=== PATIENT | male | born 1955 | race Caucasian/White ===

== ENCOUNTER → 2020-06-25 10:23 | Outpatient (BNVA) | payer OTHER, SELFPAY | PROVIDERS: Visit Provider Family Medicine Adult Medicine | DX: G47.419 Narcolepsy without cataplexy (principal); I42.8 Other cardiomyopathies; R73.09 Other abnormal glucose; E66.9 Obesity, unspecified; G47.30 Sleep apnea, unspecified; E78.5 Hyperlipidemia, unspecified; R21 Rash and other nonspecific skin eruption; H10.10 Acute atopic conjunctivitis, unspecified eye; J30.9 Allergic rhinitis, unspecified; E03.9 Hypothyroidism, unspecified; I10 Essential (primary) hypertension; R11.0 Nausea; Z68.39 Body mass index [BMI] 39.0-39.9, adult | CPT/HCPCS: 83036 ==

== ENCOUNTER → 2020-09-30 09:27 | Outpatient (BNVA) | payer OTHER, SELFPAY | PROVIDERS: PCP Family Medicine Adult Medicine; Visit Provider Family Medicine Adult Medicine | DX: I10 Essential (primary) hypertension (principal); E78.5 Hyperlipidemia, unspecified; R73.09 Other abnormal glucose | CPT/HCPCS: 85025 ==

== ENCOUNTER → 2020-09-30 09:27 | Outpatient (BNVA) | payer OTHER, SELFPAY | PROVIDERS: PCP Family Medicine Adult Medicine; Visit Provider Family Medicine Adult Medicine | DX: I10 Essential (primary) hypertension (principal); Z00.00 Encounter for general adult medical examination without abnormal findings; I50.9 Heart failure, unspecified; E78.5 Hyperlipidemia, unspecified; R73.09 Other abnormal glucose; E66.9 Obesity, unspecified | CPT/HCPCS: 80053; 80061; 83036; 84443; 85025; G0103 ==

== ENCOUNTER → 2020-10-25 13:33 | Outpatient (BNVA) | payer OTHER, SELFPAY | PROVIDERS: PCP Family Medicine Adult Medicine; Visit Provider Nurse Practitioner Family | DX: Z20.822 Contact with and (suspected) exposure to COVID-19 (principal); J06.9 Acute upper respiratory infection, unspecified | CPT/HCPCS: 87635 ==

== ENCOUNTER 2020-10-29 10:41 | Outpatient (CLI) | payer OTHER, SELFPAY ==
[2020-10-29 10:50] VITALS: BP 96/63; PULSE 70; RESP 20; TEMP 36.7; O2SAT 95
[2020-10-29 11:44] VITALS: BP 104/58; PULSE 63; RESP 18; O2SAT 93
[2020-10-29 12:44] VITALS: BP 112/76; PULSE 53; RESP 18; TEMP 36.7; O2SAT 98
== END 2020-10-29 10:42 | disposition home or self-care (01) ==
PROVIDERS: PCP Family Medicine Adult Medicine; Visit Provider Registered Nurse Neonatal Intensive Care
DX: U07.1 COVID-19 (principal)
CPT/HCPCS: 96365

== ENCOUNTER 2020-11-21 08:40 | Outpatient (CLI) | payer OTHER, SELFPAY ==
--- NOTE | 2020-11-21 08:45 | USCV_ITS ---
Tommy Handley Age: 65 Gender: M : 1955 Exam Date: 11/21/2020 09:13 Ordering Phys: Mikayla Frederick MD ([email or web address]) Technologist: Adryan Miramontes Exam Location: [facility] [place] Indication: arrhythmia BP: 120 / 73 HR: 54 Rhythm: Other Technical Quality: Adequate MEASUREMENTS (Male / Female) Normal Values 2D ECHO LV Diastolic Diameter PLAX 4.7 cm 4.2 - 5.9 / 3.9 - 5.3 cm LV Systolic Diameter PLAX 2.7 cm IVS Diastolic Thickness 1.1 cm 0.6 - 1.0 / 0.6 - 0.9 cm IVS Systolic Thickness 1.6 cm LVPW Diastolic Thickness 1.1 cm 0.6 - 1.0 / 0.6 - 0.9 cm LVPW Systolic Thickness 1.6 cm LVOT Diameter 2.1 cm LV Ejection Fraction 2D Teich 73.6 % LV Ejection Fraction MOD 2C 65.6 % LV Ejection Fraction 2C AL 66.4 % LA Diameter 3.9 cm LA Width 4.1 cm LA Height 5.2 cm RA Width 4.8 cm RA Height 4.7 cm DOPPLER AV Peak Velocity 153.0 cm/s LVOT Peak Velocity 82.0 cm/s AV Area Cont Eq vti 1.7 cm squared AV Area Cont Eq pk 1.8 cm squared MV Area PHT 5.0 cm squared Mitral E to A Ratio 0.7 MV E' Velocity 34.0 cm/s Mitral E to MV E' Ratio 7.5 Mitral E to LV E' Lateral Ratio 5.1 Mitral E to LV E' Septal Ratio 14.6 TR Peak Velocity 147.7 cm/s TR Peak Gradient 8.7 mmHg FINDINGS Left Ventricle Normal left ventricular cavity size. Normal left ventricular systolic function. No regional wall motion abnormalities. Left ventricular ejection fraction is estimated at 60 %. Grade I/IV diastolic dysfunction (abnormal relaxation filling pattern), normal to mildly elevated filling pressures. Right Ventricle The right ventricle is normal in size and function. RVSP could not be calculated due to incomplete tricuspid regurgitation velocity profile. Right Atrium The right atrium is normal in size. Left Atrium The left atrium is normal in size. Mitral Valve Mildly thickened mitral valve. No mitral valve stenosis. No mitral valve regurgitation. Aortic Valve Mild aortic valve calcification. No aortic valve stenosis. Trace aortic valve regurgitation. Tricuspid Valve Structurally normal tricuspid valve without significant stenosis or regurgitation. Pulmonic Valve Structurally normal pulmonic valve without significant stenosis. There is no pulmonic regurgitation. Pericardium Normal pericardium without effusion. Aorta Normal ascending aorta dimension. CONCLUSIONS 1-Normal left ventricular cavity size. Normal left ventricular systolic function. No regional wall motion abnormalities. Left ventricular ejection fraction is estimated at 60 %. Grade I/IV diastolic dysfunction (abnormal relaxation filling pattern), normal to mildly elevated filling pressures. 2-There is no pericardial effusion. 3-No significant valve abnormalities. 4-The right ventricle is normal in size and function. RVSP could not be calculated due to incomplete tricuspid regurgitation velocity profile. 5-Right atrial pressure is around 5 mm of mercury. 6-There are no prior echocardiogram studies to compare. Mikayla Frederick MD (Electronically Signed) Final Date: 28 November 2020 15:26 S
== END 2020-11-21 08:41 | disposition home or self-care (01) ==
PROVIDERS: PCP Family Medicine Adult Medicine; Visit Provider Internal Medicine Cardiovascular Disease
DX: R06.02 Shortness of breath (principal); R07.9 Chest pain, unspecified; I42.8 Other cardiomyopathies; I50.9 Heart failure, unspecified
CPT/HCPCS: 93306

== ENCOUNTER → 2021-07-31 11:16 | Outpatient (BNVA) | payer MEDICARE, OTHER, SELFPAY | PROVIDERS: PCP Family Medicine Adult Medicine; Visit Provider Family Medicine Adult Medicine | DX: I50.9 Heart failure, unspecified (principal); I42.8 Other cardiomyopathies; E03.9 Hypothyroidism, unspecified; I10 Essential (primary) hypertension; E78.5 Hyperlipidemia, unspecified; E66.9 Obesity, unspecified; Z79.899 Other long term (current) drug therapy | CPT/HCPCS: 80053; 80061; 83036; 84443; 85025; G0103 ==

== ENCOUNTER → 2022-04-08 09:46 | Outpatient (BNVA) | payer MEDICARE, SELFPAY | PROVIDERS: PCP Family Medicine Adult Medicine; Visit Provider Internal Medicine Cardiovascular Disease | DX: I42.8 Other cardiomyopathies (principal); G47.33 Obstructive sleep apnea (adult) (pediatric); E03.9 Hypothyroidism, unspecified; E78.5 Hyperlipidemia, unspecified; E66.9 Obesity, unspecified; Z68.38 Body mass index [BMI] 38.0-38.9, adult; F17.200 Nicotine dependence, unspecified, uncomplicated; I11.0 Hypertensive heart disease with heart failure; I50.9 Heart failure, unspecified | CPT/HCPCS: 99214 ==

== ENCOUNTER → 2022-05-06 15:19 | Outpatient (BNVA) | payer MEDICARE, SELFPAY | PROVIDERS: PCP Family Medicine Adult Medicine; Visit Provider Family Medicine Adult Medicine | DX: I10 Essential (primary) hypertension (principal); I50.9 Heart failure, unspecified; E03.9 Hypothyroidism, unspecified; G47.33 Obstructive sleep apnea (adult) (pediatric); E66.9 Obesity, unspecified | CPT/HCPCS: 80053; 84443; 85025 ==

== ENCOUNTER → 2022-05-08 13:42 | Outpatient (BNVA) | payer MEDICARE, SELFPAY | PROVIDERS: PCP Family Medicine Adult Medicine; Visit Provider Family Medicine Adult Medicine | DX: I50.9 Heart failure, unspecified (principal); E03.9 Hypothyroidism, unspecified | CPT/HCPCS: 80053; 84443 ==

== ENCOUNTER → 2022-10-01 13:11 | Outpatient (BNVA) | payer MEDICARE, SELFPAY | PROVIDERS: PCP Family Medicine Adult Medicine; Visit Provider Nurse Practitioner Family | DX: I11.0 Hypertensive heart disease with heart failure (principal); I50.9 Heart failure, unspecified; F17.210 Nicotine dependence, cigarettes, uncomplicated | CPT/HCPCS: 99214 ==

== ENCOUNTER → 2022-10-13 08:45 | Outpatient (BNVA) | payer MEDICARE, SELFPAY | PROVIDERS: PCP Family Medicine Adult Medicine; Visit Provider Family Medicine Adult Medicine | DX: E78.5 Hyperlipidemia, unspecified (principal); I10 Essential (primary) hypertension; E03.9 Hypothyroidism, unspecified; N40.0 Benign prostatic hyperplasia without lower urinary tract symptoms | CPT/HCPCS: 80053; 80061; 84153 ==

== ENCOUNTER → 2023-01-22 08:52 | Outpatient (BNVA) | payer MEDICARE, SELFPAY | PROVIDERS: PCP Family Medicine Adult Medicine; Visit Provider Family Medicine Adult Medicine | DX: E03.9 Hypothyroidism, unspecified (principal); R73.09 Other abnormal glucose; E78.5 Hyperlipidemia, unspecified; R73.03 Prediabetes | CPT/HCPCS: 80061; 83036; 84443 ==

== ENCOUNTER 2023-03-04 20:27 | Emergency (ER) | payer MEDICARE, SELFPAY ==
[2023-03-04 20:38] VITALS: BP 139/77; PULSE 87; RESP 16; TEMP 37; O2SAT 95
--- NOTE | 2023-03-04 20:44 | ECG_ITS ---
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 Measurements Intervals [place] Rate: 91 P: 64 IA: 175 QRS: -41 QRSD: 97 T: 61 QT: 344 QTc: 425 Interpretive Statements SINUS RHYTHM WITH FREQUENT VENTRICULAR PREMATURE COMPLEXES Poor R wave progression LEFT AXIS DEVIATION [QRS AXIS < -30] No previous ECG available for comparison Electronically Signed On 03-05-2023 13:42:27 IRRIGATION EQUIPMENT MECHANIC by Melva Christianson M.D. [id number]
--- NOTE | 2023-03-04 20:52 | XRR_ITS ---
PROCEDURE INFORMATION: Exam: XR Chest Exam date and time: 03/04/2023 9:08 PM Age: 67 years old Clinical indication: Cough and dyspnea; Additional info: Cough, dyspnea TECHNIQUE: Imaging protocol: Radiologic exam of the chest. Views: 1 view. COMPARISON: No relevant prior studies available. FINDINGS: Lungs: Unremarkable. No consolidation. Pleural spaces: Unremarkable. No pleural effusion. No pneumothorax. Heart/Mediastinum: Unremarkable. No cardiomegaly. Bones/joints: Unremarkable. XR/XR chest 1V portable [id number] IMPRESSION: No acute findings.
--- NOTE | 2023-03-04 20:53 | W.ED.SOB ---
HPI - SOB/Dyspnea General: Chief Complaint: Shortness of Breath/Dyspnea Stated Complaint: BP High\O2 Low\Short of Breath\Passed out Time Seen by Provider: 03/04/23 20:46 History of Present Illness: HPI Narrative: Presents to the ER with complaints of cough shortness of breath feels like is going to pass out. Patient does have a history of heart failure, nonischemic cardiomyopathy. Patient says symptoms have gotten worse over about the last week. He has been fatigued and weak. Patient is been around no sick contacts that he knows of. Review of Systems General: Reports: 10 or more systems reviewed and unremarkable except in HPI and below PFSH ED PFSH: Medical History Acute bronchitis and bronchiolitis COVID Positive test on 10/25/2020. Eczema Diastolic dysfunction Fungal toenail infection Osteoarthritis, knee CHF (congestive heart failure) Obstructive sleep apnea Hypothyroidism Allergic conjunctivitis and rhinitis Hypertension Hyperlipidemia Nonischemic cardiomyopathy Narcolepsy Obesity (BMI 30-39.9) Elevated hemoglobin A1c Surgical History S/P coronary angiogram History of hand surgery S/P shoulder surgery Family History Other Cancer Hyperlipidemia Hypertension Social History Smoking and tobacco/nicotine status: current every day tobacco/nicotine user Alcohol intake: never Substance/Drug Use: never Marital status: Number of children: 1 Number of grandchildren: 2 Current occupational status: retired Physical Exam Const: COMMON NORMALS: no acute distress, average body habitus, patient oriented x3, no limitations, healthy appearing, alert and well nourished HENMT: COMMON NORMALS: normocephalic, atraumatic, hearing grossly normal bilaterally, external ears normal, Normal external nose present, moist oral mucous membranes and oropharynx normal HEAD & SCALP: normocephalic and atraumatic NOSE: Normal external nose present EXTERNAL EAR: Yes external ears normal Neck/C-Spine: COMMON NORMALS: full ROM, no lymphadenopathy, supple, no meningeal signs, no JVD and Thyroid normal THYROID: Thyroid normal Chest: COMMONS NORMALS: normal inspection of the chest and normal palpation of entire chest wall Resp: COMMON NORMALS: normal respiratory effort, No retractions, No use of accessory muscles and clear to auscultation bilaterally AUSCULTATION: clear to auscultation bilaterally Cardio: COMMON NORMALS: no JVD, regular rate, regular rhythm, S1 normal heart sound present, S2 normal heart sound present, No gallops present (Cardio), No clicks present (Cardio), No murmurs present (Cardio) and No rub (Cardio) RATE: regular rate RHYTHM: regular rhythm HEART SOUNDS: S1 normal heart sound present and S2 normal heart sound present GI: COMMON NORMALS: Normal to inspection, nondistended, normoactive bowel sounds present, Soft to palpation, non-tender, No hepatosplenomegaly present and no masses PALPATION: Yes Soft to palpation and Yes No hepatosplenomegaly present Neuro: COMMON NORMALS: patient oriented x3 SENSORIUM/ORIENTATION: Yes alert MENINGEAL SIGNS: Yes no meningeal signs Course Vital Signs: Vital signs: Vital Signs Temperature 98.6 F 03/04/23 20:38 Pulse Rate 73 03/04/23 22:15 Respiratory Rate 18 03/04/23 22:15 Blood Pressure 112/54 03/04/23 22:15 Pulse Oximetry 91 03/04/23 22:15 MDM - SOB/Dyspnea Medical Decision Making Patient presents to the ER with complaints of cough high fever weakness shortness of breath. Patient was worked up with serial EKGs, labs and chest x-ray. As well as nasal swabs. All of which were essentially benign except for no swab for influenza A. Patient be discharged home to follow-up with his PCP within the next 7 days for further evaluation and treatment. Differential Diagnosis Unlikely acute exacerbation of chronic obstructive airways disease, congestive heart failure, community acquired pneumonia, asthma with exacerbation or pulmonary embolism Medical Records I reviewed the patient's medical records. Lab Data I reviewed the patient's lab results. 03/04/23 21:05 03/04/23 21:05 Labs/Radiology: Radiology Impressions Chest X-Ray 03/04/23 20:52 IMPRESSION: No acute findings. Laboratory Results WBC 5.61 10^3/uL (3.29-11.43) 03/04/23 21:05 RBC 4.50 10^6/uL (3.85-5.65) 03/04/23 21:05 Hgb 13.50 g/dL (11.27-16.99) 03/04/23 21:05 Hct 39.1 % (37-53) 03/04/23 21:05 MCV 86.9 fl (82-101) 03/04/23 21:05 MCH 30.0 pg (27-33) 03/04/23 21:05 MCHC 34.5 g/dL (30-55) 03/04/23 21:05 RDW 12.6 % (12.1-15.1) 03/04/23 21:05 Plt Count 173 10^3/cmm (157-399) 03/04/23 21:05 MPV 10.0 fL (7.4-10.4) 03/04/23 21:05 Neut % (Auto) 82.9 % 03/04/23 21:05 Lymph % (Auto) 8.9 % 03/04/23 21:05 [place] % (Auto) 7.8 % 03/04/23 21:05 Eos % (Auto) 0.0 % 03/04/23 21:05 Baso % (Auto) 0.2 % 03/04/23 21:05 Neut # (Auto) 4.65 10^3/uL (1.8-7.7) 03/04/23 21:05 Lymph # (Auto) 0.5 10^3/uL (0.8-4.8) L 03/04/23 21:05 [place] # (Auto) 0.4 10^3/uL (0.2-0.9) 03/04/23 21:05 Eos # (Auto) 0.0 10^3/uL (0.0-0.8) 03/04/23 21:05 Baso # (Auto) 0.0 10^3/uL (0.0-0.1) 03/04/23 21:05 Nucleated RBC % (auto) 0 % 03/04/23 21: Nucleated RBCs # 0.0 /100WBC 03/04/23 21:05 Sodium 129 mmol/L (136-145) L 03/04/23 21:05 Potassium 4.1 mmol/L (3.5-5.1) 03/04/23 21:05 Chloride 95 mmol/L (98-107) L 03/04/23 21:05 Carbon Dioxide 23 mmol/L (22-29) 03/04/23 21:05 Anion Gap 15.1 (5-19) 03/04/23 21:05 BUN 18 mg/dL (8-23) 03/04/23 21:05 Creatinine 0.9 mg/dL (0.7-1.2) 03/04/23 21:05 GFR Calculation 84.4 mL/min (90-130) L 03/04/23 21:05 Glucose 113 mg/dL (65-115) 03/04/23 21:05 Calculated Osmolality 271 mOsm/kg (285-295) L 03/04/23 21:05 Calcium 9.0 mg/dL (8.5-10.5) 03/04/23 21:05 Total Bilirubin 0.6 mg/dL (0.15-1.2) 03/04/23 21:05 AST 16 U/L (0-40) 03/04/23 21:05 ALT 16 U/L (0-41) 03/04/23 21:05 Alkaline Phosphatase 66 U/L (40-130) 03/04/23 21:05 Troponin T Baseline 21 ng/L (0-15) H 03/04/23 21:05 Troponin T 120 Minute 18.73 ng/L (0-15) H 03/04/23 22:39 Delta Troponin T -2.27 ABS# (0-10) L 03/04/23 22:39 NT-Pro-B Natriuret Pep 194 pg/mL (0-125) H 03/04/23 21:05 Total Protein 6.4 g/dL (6.6-8.7) L 03/04/23 21:05 Albumin 4.0 g/dL (3.5-5.2) 03/04/23 21:05 Globulin 2.4 g/dL (1.3-4.6) 03/04/23 21:05 Influenza Type A Ag positive (Negative) H 03/04/23 21:39 Influenza Type B Ag negative (Negative) 03/04/23 21:39 SARS-CoV-2 Ag (Rapid) negative (Negative) 03/04/23 21:39 All radiology interpretation(s) finalized by discharge EKG Data EKG 1: I personally reviewed and interpreted this EKG as follows: EKG Interpretation Date: 03/04/23 EKG interpretation time: 20:44 Prior EKG tracings: not available for review Interpretation: EKG showed ventricular rate 91 beats minute, VA interval 175, QRS duration 97, QTc of 393, sinus rhythm with occasional PVC, left axis deviation EKG 2: I personally reviewed and interpreted this EKG as follows: EKG Interpretation Date: 03/04/23 EKG interpretation time: 22:37 Prior EKG tracings: available for review Interpretation: EKG showed ventricular rate 70 bpm, VA interval 178, QRS duration 100, QTc 399, sinus rhythm, left axis deviation, Discharge Plan Discharge Patient Disposition: Home Clinical Impression: Influenza A Condition: Stable Prescriptions: No Action aspirin 325 mg tablet 325 mg PO DAILY omega-3 acid ethyl esters 1 gram capsule 1 cap PO BID Qty: 60 5RF niacin 500 mg tablet 500 mg PO DAILY multivitamin Tablet 1 tab PO DAILY ibuprofen 200 mg tablet 200 mg PO Q6H PRN clotrimazole-betamethasone 1-0.05 % cream 1 applic topical BID Qty: 45 3RF doxycycline hyclate 100 mg capsule 100 mg PO BID Qty: 20 0RF benzonatate 200 mg capsule 200 mg PO TID PRN (Reason: cough) Qty: 14 0RF levothyroxine 25 mcg tablet See Rx Instructions .ROUTE .COMPLEX Qty: 30 5RF Dose Instruction: Take 1 tablet by mouth once daily Rx Instructions: Take 1 tablet by mouth once daily spironolacton-hydrochlorothiaz 25-25 mg tablet See Rx Instructions .ROUTE .COMPLEX Qty: 90 1RF Dose Instruction: Take 1 tablet by mouth once daily Rx Instructions: Take 1 tablet by mouth once daily (DME) CPAP mask & supplies See Rx Instructions .Route .MEDSUPPLY Qty: 1 1RF Rx Instructions: Mask and supplies for his CPAP machine. carvedilol 6.25 mg tablet See Rx Instructions .ROUTE .COMPLEX Qty: 180 1RF Dose Instruction: Take 1 tablet by mouth twice daily with food Rx Instructions: Take 1 tablet by mouth twice daily with food cetirizine [Allergy Relief (cetirizine)] 10 mg tablet See Rx Instructions .ROUTE .COMPLEX Qty: 90 0RF Dose Instruction: Take 1 tablet by mouth once daily Rx Instructions: Take 1 tablet by mouth once daily Entresto 49-51 mg tablet 1 tab PO BID Qty: 180 3RF modafinil 200 mg tablet 200 mg PO DAILY PRN (Reason: Sleepiness) Qty: 30 3RF ondansetron 4 mg tablet,disintegrating 4 mg PO DAILY PRN (Reason: nausea and vomiting) Qty: 30 1RF pravastatin 40 mg tablet See Rx Instructions .ROUTE .COMPLEX Qty: 30 0RF Dose Instruction: Take 1 tablet by mouth once daily Rx Instructions: Take 1 tablet by mouth once daily Discharge Orders: Discharge ED (Routine); Ordered 03/04/23 Ordered By: Leobardo Maynard Referrals: Roderick Yu MD [Primary Care Provider] - 1 week Patient Instructions: Influenza (ED) Activity Restrictions/Additional Instructions: He tested positive for influenza A which would explain your high fever shortness of breath coughing sputum. This usually last 5 to 7 days sometimes a little bit longer. Please drink plenty of water to stay hydrated as well as get plenty of rest. Please follow-up with your family practice physician within the next 7 days for further evaluation and treatment as needed. Coding Level of Care Code ED High Pressure Operator for Jossy Elaine
[2023-03-04 21:11] LABS: Basophils % 0.2 %; Hematocrit 39.1 % (37-53); Lymphocytes # 0.5 10^3/uL (0.8-4.8); Lymphocytes % 8.9 %; Mean Corpuscular HGB Conc 34.5 g/dL (30-55); Mean Corpuscular Volume 86.9 fl (82-101); Monocytes # 0.4 10^3/uL (0.2-0.9); Monocytes % 7.8 %; Neutrophils # 4.65 10^3/uL (1.8-7.7); Neutrophils % 82.9 %; Nucleated Red Blood Cells % 0 %; Platelet Count 173 10^3/cmm (157-399); Red Cell Distribution Width 12.6 % (12.1-15.1); White Blood Count 5.61 10^3/uL (3.29-11.43)
[2023-03-04 21:29] LABS: Troponin(5th) Baseline 21 ng/L (0-15)
[2023-03-04 21:40] LABS: Alanine Aminotransferase 16 U/L (0-41); Alkaline Phosphatase 66 U/L (40-130); Anion Gap 15.1 (5-19); Aspartate Amino Transferase 16 U/L (0-40); Blood Urea Nitrogen 18 mg/dL (8-23); Carbon Dioxide 23 mmol/L (22-29); Chloride 95 mmol/L (98-107); Globulin 2.4 g/dL (1.3-4.6); Glomerular Filtration Rate 84.4 mL/min (90-130); Glucose 113 mg/dL (65-115); NT Pro B Type Natriuretic Pept 194 pg/mL (0-125); Osmolality Calculated 271 mOsm/kg (285-295); Potassium 4.1 mmol/L (3.5-5.1); Sodium 129 mmol/L (136-145); Total Bilirubin 0.6 mg/dL (0.15-1.2); Total Protein 6.4 g/dL (6.6-8.7)
[2023-03-04 21:51] LABS: Influenza A by IFA positive (Negative); Influenza B by IFA negative (Negative)
[2023-03-04 22:03] LABS: SARS Covid-2 Antigen negative (Negative)
[2023-03-04 22:15] VITALS: BP 112/54; PULSE 73; RESP 18; O2SAT 91
--- NOTE | 2023-03-04 22:52 | ECG_ITS ---
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 Measurements Intervals [place] Rate: 78 P: 76 NE: 178 QRS: -51 QRSD: 100 T: 61 QT: 365 QTc: 418 Interpretive Statements SINUS RHYTHM LEFT AXIS DEVIATION [QRS AXIS < -30] LOW QRS VOLTAGE IN PRECORDIAL LEADS [QRS DEFLECTION < 1.0 mV IN CHEST LEADS] No previous ECG available for comparison Electronically Signed On 03-05-2023 13:48:48 MATH AND PHYSICS INSTRUCTOR by Melva Christianson M.D. [id number]
[2023-03-04 23:02] LABS: Troponin 5 2HR 18.73 ng/L (0-15)
[2023-03-04 23:04] LABS: Troponin 5 2HR Delta -2.27 ABS# (0-10)
[2023-03-04 23:43] LABS: Protein Urine Trace (Negative); Urine Appearance Clear (CLEAR); Urine Color Dark Yellow (Yellow); pH Urine 5 (5-7)
[2023-03-04 23:44] LABS: Add Urine Microscopic? YES; Bacteria Urine TRACE /hpf; Bilirubin Urine Neg (Negative); Blood Urine Neg (Negative); Glucose Urine UA Norm (Normal); Hyaline Casts Urine 0-4 /lpf; Ketones Urine 1+ (Negative); Leukocyte Esterase Urine Negative (Negative); Mucus Urine 2+ /hpf; Nitrate Urine Negative (Negative); Squamous Epithelial Cell Urine RARE /hpf (0-5); Urobilinogen Urine Norm (Negative)
[2023-03-04 23:45] LABS: Add Urine Culture? No; WBC Urine RARE /hpf (0-5)
== END 2023-03-04 23:30 | disposition home or self-care (01) ==
PROVIDERS: Emergency Provider Emergency Medicine; PCP Family Medicine Adult Medicine
DX: J10.1 Influenza due to other identified influenza virus with other respiratory manifestations (principal); Z79.82 Long term (current) use of aspirin; Z11.52 Encounter for screening for COVID-19; Z72.0 Tobacco use; I11.0 Hypertensive heart disease with heart failure; I50.9 Heart failure, unspecified; E78.5 Hyperlipidemia, unspecified; I42.8 Other cardiomyopathies
CPT/HCPCS: 36415; 71045; 80053; 81001; 83880; 84484; 85025; 87426; 87804; 93005; 99284

== ENCOUNTER → 2023-04-27 15:18 | Outpatient (BNVA) | payer MEDICARE, SELFPAY | PROVIDERS: PCP Family Medicine Adult Medicine; Visit Provider Internal Medicine Cardiovascular Disease | DX: I11.0 Hypertensive heart disease with heart failure (principal); I50.32 Chronic diastolic (congestive) heart failure; I42.8 Other cardiomyopathies; E78.2 Mixed hyperlipidemia; R63.4 Abnormal weight loss; Z68.35 Body mass index [BMI] 35.0-35.9, adult; F17.200 Nicotine dependence, unspecified, uncomplicated | CPT/HCPCS: 99214 ==

== ENCOUNTER → 2023-07-16 11:41 | Outpatient (BNVA) | payer MEDICARE, SELFPAY | PROVIDERS: PCP Family Medicine Adult Medicine; Visit Provider Family Medicine Adult Medicine | DX: I10 Essential (primary) hypertension (principal); E78.2 Mixed hyperlipidemia; E03.9 Hypothyroidism, unspecified; I50.32 Chronic diastolic (congestive) heart failure; R73.03 Prediabetes | CPT/HCPCS: 80053; 80061; 83036; 84443; 85025 ==

== ENCOUNTER → 2023-11-01 10:36 | Outpatient (BNVA) | payer MEDICARE, SELFPAY | PROVIDERS: PCP Family Medicine Adult Medicine; Visit Provider Nurse Practitioner Family | DX: I11.0 Hypertensive heart disease with heart failure (principal); I50.32 Chronic diastolic (congestive) heart failure | CPT/HCPCS: 99214 ==

== ENCOUNTER → 2024-05-18 09:48 | Outpatient (BNVA) | payer MEDICARE, SELFPAY | PROVIDERS: PCP Family Medicine; Visit Provider Family Medicine | DX: E03.9 Hypothyroidism, unspecified (principal); I25.10 Atherosclerotic heart disease of native coronary artery without angina pectoris; R73.03 Prediabetes | CPT/HCPCS: 80053; 80061; 83036; 84439; 84443; 85025 ==

== ENCOUNTER 2024-06-15 09:35 | Outpatient (CLI) | payer MEDICARE, SELFPAY ==
--- NOTE | 2024-06-15 09:43 | XR_ITS ---
WS: [id number] Exam: XR foot LT min 3V* [id number] Date/Time of Exam: 06/15/2024 9:43 AM Reason For Exam: R73.03 - Prediabetes No fracture or bone destruction noted. Degenerative change at the first MP joint and the midfoot joints. Soft tissue swelling of the second toe. XR/XR foot LT min 3V* [id number] IMPRESSION: 1. No fracture or bone destruction. Mild degenerative changes. 2. Soft tissue edema and possible ulceration of the distal second toe
== END 2024-06-15 09:36 | disposition home or self-care (01) ==
PROVIDERS: PCP Family Medicine; Visit Provider Thoracic Surgery (Cardiothoracic Vascular Surgery)
DX: R73.03 Prediabetes (principal); S91.302A Unspecified open wound, left foot, initial encounter; X58.XXXA Exposure to other specified factors, initial encounter; M19.072 Primary osteoarthritis, left ankle and foot; M79.89 Other specified soft tissue disorders; R93.6 Abnormal findings on diagnostic imaging of limbs; I96 Gangrene, not elsewhere classified; L97.521 Non-pressure chronic ulcer of other part of left foot limited to breakdown of skin
CPT/HCPCS: 73630; 97597

== ENCOUNTER 2024-06-16 13:25 | Outpatient (CLI) | payer MEDICARE, SELFPAY ==
--- NOTE | 2024-06-16 13:30 | USCV_ITS ---
Tommy Handley Age: 68 Gender: M : 1955 Exam Date: 06/16/2024 13:58 Ordering Phys: Servando Whitfield MD Technologist: Johny Cohen Exam Location: [place] Indication: heart failure BP: 118 / 68 HR: 60 Rhythm: Sinus Technical Quality: Adequate MEASUREMENTS (Male / Female) Normal Values 2D ECHO LV Diastolic Diameter PLAX 5.1 cm 4.2 - 5.9 / 3.9 - 5.3 cm IVS Diastolic Thickness 1.2 cm 0.6 - 1.0 / 0.6 - 0.9 cm IVS Systolic Thickness 1.3 cm LVPW Diastolic Thickness 1.6 cm 0.6 - 1.0 / 0.6 - 0.9 cm LVPW Systolic Thickness 2.5 cm LVOT Diameter 2.1 cm LV Ejection Fraction 2D Teich 55.6 % LV Ejection Fraction MOD 4C 52.9 % LV Ejection Fraction MOD 2C 54.0 % LV Ejection Fraction 2C AL 53.3 % LA Diameter 4.4 cm RA Systolic Volume 4C AL 67.6 ml RA Systolic Volume 4C MOD 53.5 ml LA Sys Volume AL 60.4 cm cubed LA Sys Volume Index AL 22.2 cm cubed/m squared Aorta at Sinotubular Diameter 2.5 cm IVC Diameter 2.0 cm M-MODE LA Ao Ratio MM 1.4 AV Cusp Separation MM 1.9 cm DOPPLER AV Peak Velocity 150.0 cm/s LVOT Peak Velocity 85.0 cm/s AV Area Cont Eq vti 1.8 cm squared AV Area Cont Eq pk 2.0 cm squared MV Peak Velocity 109.0 cm/s MV Area PHT 3.1 cm squared Mitral E to A Ratio 0.7 TV Peak Velocity 252.5 cm/s TR Peak Velocity 261.0 cm/s TR Peak Gradient 27.2 mmHg TR Mean Velocity 199.0 cm/s TR Mean Gradient 17.7 mmHg TR Velocity Time Integral 81.1 cm PV Peak Velocity 113.0 cm/s RV Ejection Time 0.3 s FINDINGS Left Ventricle Normal left ventricular size, systolic function and wall thickness, with no regional wall motion abnormalities. Left ventricular ejection fraction is estimated at 60 %. Grade I/IV diastolic dysfunction (abnormal relaxation filling pattern), normal to mildly elevated filling pressures. Right Ventricle The right ventricle is normal in size and function. Right Atrium The right atrium is normal in size. Left Atrium Moderately increased left atrial size. Mitral Valve Structurally normal mitral valve without significant stenosis or prolapse. There is no mitral regurgitation. Aortic Valve Mild aortic valve calcification. No aortic valve stenosis. Trace aortic valve regurgitation. Tricuspid Valve Trace tricuspid valve regurgitation. Pulmonic Valve Structurally normal pulmonic valve without significant stenosis. There is no pulmonic regurgitation. Pericardium Normal pericardium without effusion. Aorta Normal ascending aorta dimension. IVC The inferior vena cava appears normal. CONCLUSIONS Normal left ventricular size, systolic function and wall thickness, with no regional wall motion abnormalities. Left ventricular ejection fraction is estimated at 60 %. Grade I/IV diastolic dysfunction (abnormal relaxation filling pattern), normal to mildly elevated filling pressures. Moderately increased left atrial size. There is no pericardial effusion. Right atrial pressure is around 5 mm of mercury. Mikayla Frederick MD (Electronically Signed) Final Date: 09 Jul 2024 17:18 S
== END 2024-06-16 13:26 | disposition home or self-care (01) ==
PROVIDERS: PCP Family Medicine; Visit Provider Family Medicine
DX: I50.32 Chronic diastolic (congestive) heart failure (principal); R93.1 Abnormal findings on diagnostic imaging of heart and coronary circulation; I51.7 Cardiomegaly; I35.8 Other nonrheumatic aortic valve disorders
CPT/HCPCS: 93306

== ENCOUNTER → 2024-06-22 08:27 | Outpatient (BNVA) | payer MEDICARE, SELFPAY | PROVIDERS: PCP Family Medicine; Visit Provider Thoracic Surgery (Cardiothoracic Vascular Surgery) | DX: I96 Gangrene, not elsewhere classified (principal); L97.521 Non-pressure chronic ulcer of other part of left foot limited to breakdown of skin | CPT/HCPCS: 97597; A6446 ==

== ENCOUNTER → 2024-06-29 09:55 | Outpatient (BNVA) | payer MEDICARE, SELFPAY | PROVIDERS: PCP Family Medicine; Visit Provider Thoracic Surgery (Cardiothoracic Vascular Surgery) | DX: I96 Gangrene, not elsewhere classified (principal); L97.521 Non-pressure chronic ulcer of other part of left foot limited to breakdown of skin | CPT/HCPCS: 97597 ==

== ENCOUNTER → 2024-07-06 09:42 | Outpatient (BNVA) | payer MEDICARE, SELFPAY | PROVIDERS: PCP Family Medicine; Visit Provider Thoracic Surgery (Cardiothoracic Vascular Surgery) | DX: I96 Gangrene, not elsewhere classified (principal); L97.521 Non-pressure chronic ulcer of other part of left foot limited to breakdown of skin | CPT/HCPCS: 97597 ==

== ENCOUNTER → 2024-07-13 13:31 | Outpatient (BNVA) | payer MEDICARE, SELFPAY | PROVIDERS: PCP Family Medicine | DX: I96 Gangrene, not elsewhere classified (principal); L97.521 Non-pressure chronic ulcer of other part of left foot limited to breakdown of skin | CPT/HCPCS: 97597; J9999 ==

== ENCOUNTER → 2024-07-24 13:57 | Outpatient (BNVA) | payer MEDICARE, SELFPAY | PROVIDERS: PCP Family Medicine; Visit Provider Thoracic Surgery (Cardiothoracic Vascular Surgery) | DX: Z09 Encounter for follow-up examination after completed treatment for conditions other than malignant neoplasm (principal); Z87.2 Personal history of diseases of the skin and subcutaneous tissue | CPT/HCPCS: 99212 ==

== ENCOUNTER → 2024-08-31 10:43 | Outpatient (BNVA) | payer MEDICARE, SELFPAY | PROVIDERS: PCP Family Medicine; Visit Provider Podiatrist Foot & Ankle Surgery | DX: I73.9 Peripheral vascular disease, unspecified (principal); L60.3 Nail dystrophy; L84 Corns and callosities | CPT/HCPCS: 11055; 11721; 99203 ==

== ENCOUNTER → 2024-09-11 10:29 | Outpatient (BNVA) | payer MEDICARE, SELFPAY | PROVIDERS: PCP Family Medicine; Visit Provider Family Medicine | DX: N40.0 Benign prostatic hyperplasia without lower urinary tract symptoms (principal); E03.9 Hypothyroidism, unspecified | CPT/HCPCS: 84153; 84439; 84443 ==

== ENCOUNTER → 2024-11-16 09:58 | Outpatient (BNVA) | payer MEDICARE, SELFPAY | PROVIDERS: PCP Family Medicine; Visit Provider Podiatrist Foot & Ankle Surgery | DX: I73.9 Peripheral vascular disease, unspecified (principal); L60.3 Nail dystrophy; L84 Corns and callosities | CPT/HCPCS: 11721 ==

== ENCOUNTER → 2024-11-23 09:13 | Outpatient (BNVA) | payer MEDICARE, SELFPAY | PROVIDERS: PCP Family Medicine; Visit Provider Internal Medicine Cardiovascular Disease | DX: I25.10 Atherosclerotic heart disease of native coronary artery without angina pectoris (principal); I10 Essential (primary) hypertension | CPT/HCPCS: 99214 ==

== ENCOUNTER 2025-01-10 07:09 | Outpatient (CLI) | payer MEDICARE, SELFPAY ==
--- NOTE | 2025-01-10 07:15 | MR_ITS ---
WS: [id number] MRI RIGHT SHOULDER HISTORY: supraspinatous rotator cuff tear COMPARISON: None available. TECHNIQUE: Multiplanar sequences of the shoulder joint are submitted. Moderate to severe AC joint arthritis. Small erosions involving the distal clavicle. There is edema and fluid at the AC joint with marked synovial hypertrophy. Osteophyte and synovial hypertrophy encroaching upon and deforming the distal supraspinatus tendon and muscle. Mild subacromial impingement. Mo derate fluid in the subacromial and subdeltoid bursa. No os acromion. Absent biceps tendon in the bicipital groove. Large subchondral cyst in the posterior lateral humeral head. Hypertrophic bone formation involving the lesser tuberosity. Mild narrowing the glenohumeral joint. Loss of cartilage and cortical irregularity involving the glenoid. Severe tendinopathy of the distal supraspinatus tendon. Loss of the normal contour and signal of the distal supraspinatus tendon beginning at the medial humeral head. Severe tendinopathy. There is additional marked surface fraying along the bursal and articular surfaces of the tendon. Distal bursal surface tear suspected of the supraspinatus. There is mild atrophy of the supraspinatus muscle. Subscapularis tendon is intact. Large amount of fluid in the subscapularis recess. Infraspinatus tendon is intact. Tear with avulsion of the posterior labrum. Suspect there is also a tiny amount of the glenoid also avulsed. Abnormal superior labrum. Superior labral tear identified. MR/MR shoulder RT wo con* [id number] IMPRESSION: 1. Moderate to severe AC joint arthritis with marked synovitis. There is encro achment upon the myotendinous portion of the supraspinatus with deformity. 2. Absent biceps tendon in the bicipital groove. 3. Severe tendinopathy of the distal supraspinatus tendon. Bursal surface tear noted distally. 4. Mild supraspinatus atrophy. 5. Large subchondral cyst in the posterior lateral humeral head. 6. Loss of cartilage involving the humeral head and glenoid. 7. Avulsion of the posterior labrum. Avulsion tiny osseous avulsion associated with the posterior labrum tear. 8. Superior labral tear. 9. Large amount of fluid in the subscapularis recess.
== END 2025-01-10 07:10 | disposition home or self-care (01) ==
LOC: RAD 07:10
PROVIDERS: PCP Family Medicine; Visit Provider Family Medicine
DX: M75.101 Unspecified rotator cuff tear or rupture of right shoulder, not specified as traumatic (principal); M19.011 Primary osteoarthritis, right shoulder; S43.431A Superior glenoid labrum lesion of right shoulder, initial encounter; X58.XXXA Exposure to other specified factors, initial encounter; M67.813 Other specified disorders of tendon, right shoulder; M62.511 Muscle wasting and atrophy, not elsewhere classified, right shoulder; M85.611 Other cyst of bone, right shoulder; M24.111 Other articular cartilage disorders, right shoulder; S46.291D Other injury of muscle, fascia and tendon of other parts of biceps, right arm, subsequent encounter; X58.XXXD Exposure to other specified factors, subsequent encounter
CPT/HCPCS: 73221

== ENCOUNTER 2025-01-11 16:23 | Outpatient (CLI) | payer MEDICARE, SELFPAY ==
--- NOTE | 2025-01-11 17:10 | XRR_ITS ---
PROCEDURE INFORMATION: Exam: XR Lumbosacral Spine Exam date and time: 01/11/2025 5:16 PM Age: 69 years old Clinical indication: Lumbago with sciatica; Bilateral; History--lower back pain intermittently radiates down both legs; Additional info: Chronic lumbar back pain TECHNIQUE: Imaging protocol: Radiologic exam of the lumbosacral spine. Views: 2 or 3 views. COMPARISON: No relevant prior studies available. FINDINGS: Bones/joints: There are 5 lumbar type vertebrae. No evidence of acute fracture. There is advanced multilevel degenerative disc disease throughout the lumbar spine with disc space narrowing, endplate spurring, and endplate sclerosis. Lower lumbar facet arthropathy noted. Right worse than left sacroiliac osteoarthritis. Soft tissues: Unremarkable. XR/XR lumbar spine 2-3V* [id number] IMPRESSION: No evidence of acute fracture. There is advanced degenerative change with potential for spinal canal and/or neural foraminal stenosis at multiple levels. Consider CT or MR for further characterization.
== END 2025-01-11 16:24 | disposition home or self-care (01) ==
PROVIDERS: PCP Family Medicine; Visit Provider Family Medicine
DX: M54.9 Dorsalgia, unspecified (principal); G89.29 Other chronic pain; M51.362 Other intervertebral disc degeneration, lumbar region with discogenic back pain and lower extremity pain; M48.061 Spinal stenosis, lumbar region without neurogenic claudication; M47.897 Other spondylosis, lumbosacral region; M48.07 Spinal stenosis, lumbosacral region
CPT/HCPCS: 72100

== ENCOUNTER → 2025-01-16 13:46 | Outpatient (BNVA) | payer MEDICARE, SELFPAY | PROVIDERS: PCP Family Medicine; Visit Provider Orthopaedic Surgery | DX: M75.101 Unspecified rotator cuff tear or rupture of right shoulder, not specified as traumatic (principal) | CPT/HCPCS: 99204 ==

== ENCOUNTER 2025-01-31 10:22 | Outpatient (RCR) | payer MEDICARE, SELFPAY | END 2025-02-21 23:59 | disposition home or self-care (01) | LOC: SPT 10:22 | PROVIDERS: PCP Family Medicine; Visit Provider Family Medicine | DX: M54.9 Dorsalgia, unspecified (principal); G89.29 Other chronic pain | CPT/HCPCS: 97110; 97161 ==

== ENCOUNTER → 2025-02-09 10:59 | Outpatient (BNVA) | payer MEDICARE, SELFPAY | PROVIDERS: PCP Family Medicine; Visit Provider Family Medicine | DX: E03.9 Hypothyroidism, unspecified (principal); I10 Essential (primary) hypertension; R73.03 Prediabetes | CPT/HCPCS: 80053; 80061; 83036; 84439; 84443; 85025 ==